=== PATIENT | male | born 1995 ===

== ENCOUNTER 2021-10-24 23:05 | Emergency (ER) | payer SELFPAY ==
[2021-10-25 01:31] LABS: Basophils % (Auto) 0.4 % (0.0-1.8); Eosinophils # (Auto) 0.2 K/mm3 (0.0-0.4); Eosinophils % (Auto) 3.6 % (0.0-4.3); Hematocrit 44.3 % (35.5-45.6); Hemoglobin 14.7 gm/dl (11.8-15.2); Lymphocytes # (Auto) 1.8 K/mm3 (1.2-5.4); Lymphocytes % (Auto) 35.3 % (13.4-35.0); Mean Corpuscular HGB Conc 33 % (32-34); Mean Corpuscular Volume 92 fl (84-94); Monocytes # (Auto) 0.5 K/mm3 (0.0-0.8); Monocytes % (Auto) 10.1 % (0.0-7.3); Platelet Count 257 K/mm3 (140-440); Red Blood Count 4.83 M/mm3 (3.65-5.03); Red Cell Distribution Width 13.7 % (13.2-15.2)
[2021-10-25 01:44] LABS: Blood Urea Nitrogen 18 mg/dL (9-20); Calcium 9.1 mg/dL (8.4-10.2); Hemolysis Index 9
[2021-10-25 01:45] LABS: BUN/Creatinine Ratio 26
--- NOTE | 2021-10-25 04:44 | Emergency Department Report ---
ED Psych HPI - General Chief Complaint: Psych Stated Complaint: PSYCH EVAL Time Seen by Provider: 10/25/21 00:30 Source: patient Mode of arrival: Ambulatory Limitations: No Limitations - History of Present Illness Initial Comments: 26-year male with a past medical history ADHD, schizophrenia, PTSD, diabetes and autism presents to the hospital complaining of needing mental health evaluation for hallucinations. Patient complained to have a hallucinations for the past 5 days. He denies suicidal homicidal ideation. He is not currently on any medication. No physical complaints reported - Related Data Allergies Allergy/AdvReac Type Severity Reaction Status Date / Time NSAIDS (Non-Steroidal Allergy Hives Verified 10/24/21 23:07 Anti-Inflamma olanzapine [From Zyprexa] Allergy Hives Verified 10/24/21 23:08 Penicillins Allergy Hives Verified 10/24/21 23:08 Sulfa (Sulfonamide Allergy Hives Verified 10/24/21 23:08 Antibiotics) ziprasidone [From Geodon] Allergy Shortness Verified 10/24/21 23:08 of Breath ED Review of Systems ROS: Stated complaint: PSYCH EVAL Other details as noted in HPI Comment: All other systems reviewed and negative ED Past Medical Hx - Past Medical History Previous Medical History?: Yes Hx Diabetes: Yes Additional medical history: virtigo ED Physical Exam - General Limitations: No Limitations - Other Other exam information: General: No acute distress Head: Atraumatic Eyes: normal appearance ENT: Moist mucous membranes Neck: Normal appearance, no midline tenderness Chest: Clear to auscultation bilaterally CV: Regular rate and rhythm Abdomen: Soft, normal bowel sounds, nontender, nondistended, no rebound or guarding Back: Normal inspection Extremity: Normal inspection, full range of motion Neuro: Alert O x 3, no facial asymmetry, speech clear, no gross motor sensory deficit Psych: Appropriate behavior Skin: No rash ED Course Vital Signs 10/24/21 10/25/21 10/25/21 23:06 01:27 03:00 Temperature 98.7 F 97.5 F L Pulse Rate 81 65 Respiratory 17 16 Rate Blood Pressure 132/78 Blood Pressure 110/63 [Left] O2 Sat by Pulse 96 98 98 Oximetry ED Medical Decision Making - Lab Data Result diagrams: 10/25/21 01:09 10/25/21 01:09 Lab Results 10/25/21 10/25/21 10/25/21 Range/Units 01:09 01: 01:09 WBC 5.1 (4.5-11.0) K/mm3 RBC 4.83 (3.65-5.03) M/mm3 Hgb 14.7 (11.8-15.2) gm/dl Hct 44.3 (35.5-45.6) % MCV 92 (84-94) fl MCH 31 (28-32) pg MCHC 33 (32-34) % RDW 13.7 (13.2-15.2) % Plt Count 257 (140-440) K/mm3 Lymph % (Auto) 35.3 H (13.4-35.0) % [place] % (Auto) 10.1 H (0.0-7.3) % Eos % (Auto) 3.6 (0.0-4.3) % Baso % (Auto) 0.4 (0.0-1.8) % Lymph # (Auto) 1.8 (1.2-5.4) K/mm3 [place] # (Auto) 0.5 (0.0-0.8) K/mm3 Eos # (Auto) 0.2 (0.0-0.4) K/mm3 Baso # (Auto) 0.0 (0.0-0.1) K/mm3 Seg Neutrophils % 50.6 (40.0-70.0) % Seg Neutrophils # 2.6 (1.8-7.7) K/mm3 Sodium 142 (137-145) mmol/L Potassium 3.9 (3.6-5.0) mmol/L Chloride 104.7 (98-107) mmol/L Carbon Dioxide 24 (22-30) mmol/L Anion Gap 17 mmol/L BUN 18 (9-20) mg/dL Creatinine 0.7 L (0.8-1.3) mg/dL Estimated GFR > 60 ml/min BUN/Creatinine Ratio 26 % Glucose 106 H (75-100) mg/dL Calcium 9.1 (8.4-10.2) mg/dL Salicylates < 0.3 L (2.8-20.0) mg/dL Acetaminophen (10.0-30.0) ug/mL Plasma/Serum Alcohol (0-0.07) % 10/25/21 10/25/21 Range/Units 01:09 01:09 WBC (4.5-11.0) K/mm3 RBC (3.65-5.03) M/mm3 Hgb (11.8-15.2) gm/dl Hct (35.5-45.6) % MCV (84-94) fl MCH (28-32) pg MCHC (32-34) % RDW (13.2-15.2) % Plt Count (140-440) K/mm3 Lymph % (Auto) (13.4-35.0) % [place] % (Auto) (0.0-7.3) % Eos % (Auto) (0.0-4.3) % Baso % (Auto) (0.0-1.8) % Lymph # (Auto) (1.2-5.4) K/mm3 [place] # (Auto) (0.0-0.8) K/mm3 Eos # (Auto) (0.0-0.4) K/mm3 Baso # (Auto) (0.0-0.1) K/mm3 Seg Neutrophils % (40.0-70.0) % Seg Neutrophils # (1.8-7.7) K/mm3 Sodium (137-145) mmol/L Potassium (3.6-5.0) mmol/L Chloride (98-107) mmol/L Carbon Dioxide (22-30) mmol/L Anion Gap mmol/L BUN (9-20) mg/dL Creatinine (0.8-1.3) mg/dL Estimated GFR ml/min BUN/Creatinine Ratio % Glucose (75-100) mg/dL Calcium (8.4-10.2) mg/dL Salicylates (2.8-20.0) mg/dL Acetaminophen 5.0 L (10.0-30.0) ug/mL Plasma/Serum Alcohol < 0.01 (0-0.07) % - Medical Decision Making 26-year-old male presents to the hospital with significant psychosis for the last 5 days. Patient does not appear to be on any psych medications. Urine collection pending at disposition however, patient is otherwise medically cleared and awaiting mental health consultation Critical Care Time: No Critical care attestation.: If time is entered above; I have spent that time in minutes in the direct care of this critically ill patient, excluding procedure time. ED Disposition Clinical Impression: Acute psychosis [facility] Is pt being admited?: No Does the pt Need Aspirin: No Condition: Stable
[2021-10-25 09:24] LABS: Bilirubin,Urine NEG (Negative); Blood,Urine NEG (Negative); Color,Urine Yellow (Yellow); Mucus,Urine 1+ /HPF; Protein,Urine <15 mg/dL mg/dL (Negative); Urobilinogen,Urine < 2.0 mg/dL (<2.0)
[2021-10-25] MEDS ORDERED: HALOPERIDOL LACTATE 5 MG/1 ML INJ ONE (09:31)
[2021-10-25] MEDS ORDERED: diphenhydrAMINE 50 MG/ML VIAL ONE (09:31)
[2021-10-25 09:34] LABS: Amphetamine Screen,Urine Negative; Benzodiazepines Screen,Urine Negative; Cannabinoid Screen,Urine Negative; Cocaine Screen,Urine Negative; Methadone Screen,Urine Negative; Opiate Screen,Urine Negative
[2021-10-25] MEDS ORDERED: HALOPERIDOL LACTATE 5 MG/1 ML INJ IM ONE (09:53)
[2021-10-25] MEDS ORDERED: diphenhydrAMINE 50 MG/ML VIAL IV ONE (09:54)
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
[2021-10-25] MEDS: risperiDONE 0.25 MG TAB PO SCH ×2 (11:17→21:57)
--- NOTE | 2021-10-25 12:08 | Event Note ---
Date: 10/25/21 S: No events reported overnight O: Vital Signs - 8 hr 10/25/21 09:03 Temperature 99 F Pulse Rate 81 Respiratory 16 Rate Blood Pressure 122/83 [Left] O2 Sat by Pulse 99 Oximetry A: Schizoaffective disorder PE: 1013/awaiting inpatient psych placement
[2021-10-25] MEDS ORDERED: LORazepam 1 MG TAB PO ONE (17:25)
[2021-10-25] MEDS ORDERED: traZODone 50 MG TAB PO SCH (22:00)
--- NOTE | 2021-10-26 08:29 | Progress Note ---
Subjective - Reason for Consult Consult date: 10/26/21 Reason for consult: hallucinatoins - Chief Complaint Chief complaint: The patient was seen today. He appears anxious and is pacing back and forth. He says "the voices are getting to me. They keep telling me to kill myself." The patient says "it's to hard to take." He denies SI/HI, but states "they won't stop telling me to do it." REVIEW OF SYSTEMS Constitutional: Negative for weight loss ENT: Negative for stridor Respiratory: Negative for cough or hemoptysis All other systems reviewed and are negative MENTAL STATUS EXAMINATION General Appearance and Behavior: Age appropriate, good hygiene, wearing appropriate clothes. calm, cooperative Cooperation: Cooperative Psychomotor Behavior: Psychomotor normal Mood: depressed Affect and affective range: congruent with stated mood Thought Process: Goal directed Thought Content: hallucinations Speech: Normal tone and pace Suicidal Ideation: Denies Homicidal Ideation: Denies Hallucinations: auditory, command hallucinations Delusions: None elicited Impulse Control: Limited Insight and Judgment: Limited insight and good judgment Memory: Limited Attention: distracted Orientation: a/o x 3 Assessment (1) Schizoaffective Treatment Plan 1013 Increase Risperidone 1mg po BID Start Lorazepam 2mg IM q4h prn anxiety Haldol 5mg IM q4h prn agitation Trazodone 50mg po qhs Medical: per primary Disposition: Recommend acute psychiatric inpatient treatment Will follow. thanks Case staffed with Dr. Vick Mental Status Exam - Vital signs Last Vital Signs Temp 98.4 F 10/25/21 20:54 Pulse 79 10/25/21 20:54 Resp 20 10/25/21 20:55 BP 108/67 10/25/21 20:54 Pulse Ox 96 10/26/21 08:13
[2021-10-26] MEDS ORDERED: HALOPERIDOL LACTATE 5 MG/1 ML INJ IM PRN (08:30)
[2021-10-26] MEDS ORDERED: LORazepam 2 MG/ML VIAL IM PRN (08:30)
[2021-10-26] MEDS ORDERED: risperiDONE 1 MG TAB PO SCH (10:00)
--- NOTE | 2021-10-26 11:05 | Event Note ---
No acute medical issues. Vital signs are stable. Awaiting disposition to inpatient psychiatric facility as recommended by mental health team. Patient is medically clear for psychiatric care.
[2021-10-26 15:03] VITALS: BP 140/79
== END 2021-10-26 15:02 ==
LOC: ED 23:05
DX: F23 Brief psychotic disorder (principal); E11.9 Type 2 diabetes mellitus without complications; Z88.2 Allergy status to sulfonamides; Z20.822 Contact with and (suspected) exposure to COVID-19; Z79.899 Other long term (current) drug therapy; Z88.8 Allergy status to other drugs, medicaments and biological substances
CPT/HCPCS: 36415; 80048; 80307; 81001; 82962; 85025; 96372; 96374; 99285; J1200; J1630; U0003; 80320; G0480